=== PATIENT | male | born 1960 | race Caucasian/White ===

== ENCOUNTER 2023-06-06 08:05 | Outpatient (CLI) | payer BC, SELFPAY | END 2023-06-06 08:06 | disposition home or self-care (01) | LOC: NFLDREF 06-07 21:11 | PROVIDERS: PCP Family Medicine; Referring Provider Family Medicine; Visit Provider Family Medicine | DX: Z00.00 Encounter for general adult medical examination without abnormal findings (principal); E66.9 Obesity, unspecified; R03.0 Elevated blood-pressure reading, without diagnosis of hypertension; Z12.5 Encounter for screening for malignant neoplasm of prostate; Z13.6 Encounter for screening for cardiovascular disorders | CPT/HCPCS: 80053; 80061; 84153 ==

== ENCOUNTER 2023-06-08 12:02 | Outpatient (CLI) | payer BC, SELFPAY ==
--- NOTE | 2023-06-08 13:02 | W.ANESCHARGE ---
Anesthesia Charges Start Date/Time Anesthesia Start Date: 06/08/23 Anesthesia Start Time: 13:15 Stop Date/Time Anesthesia Stop Date: 06/08/23 Anesthesia Stop Time: 13:50
--- NOTE | 2023-06-08 13:53 | W.ANESCHARGE ---
Anesthesia Charges Start Date/Time Anesthesia Start Date: 06/08/23 Anesthesia Start Time: 13:15 Stop Date/Time Anesthesia Stop Date: 06/08/23 Anesthesia Stop Time: 13:50
== END 2023-06-08 12:03 | disposition home or self-care (01) ==
LOC: OP CLINIC 12:04
PROVIDERS: PCP Family Medicine; Visit Provider Surgery
DX: Z12.11 Encounter for screening for malignant neoplasm of colon (principal); K63.5 Polyp of colon; K57.30 Diverticulosis of large intestine without perforation or abscess without bleeding
CPT/HCPCS: 00811; 45385; 88305; J2704

== ENCOUNTER 2024-12-06 10:30 | Outpatient (CLI) | payer BC, SELFPAY | END 2024-12-06 10:31 | disposition home or self-care (01) | LOC: NFLDREF 12-10 02:03 | PROVIDERS: PCP Family Medicine; Referring Provider Family Medicine; Visit Provider Family Medicine | DX: Z12.5 Encounter for screening for malignant neoplasm of prostate (principal); M79.672 Pain in left foot; M79.671 Pain in right foot; E78.5 Hyperlipidemia, unspecified | CPT/HCPCS: 80053; 80061; 84550; G0103 ==